=== PATIENT | female | born 1935 | race Caucasian/White ===

== ENCOUNTER 2017-11-08 11:20 | Inpatient (IN) | payer MEDICARE ==
[~2017-11-08 11:20] MED LIST: EPINEPHrine 0.1 MG/ML SYG; NA BICARBONATE 8.4% 50 ML SYG
[2017-11-08] MEDS: SOD CHLORIDE 0.9% 1,000 ML IV (11:37)
[2017-11-08] MEDS: ALBUTEROL 0.5% (NEB) 2.5 MG/0.5 ML AMP INH (11:57)
[2017-11-08 12:32] LABS: ADD MAN DIFF? NO
[2017-11-08 12:37] LABS: WHITE BLOOD COUNT 9.4 10^3/ul (4.8-10.8)
[2017-11-08 12:37] LABS: ABNORMAL IP MESSAGE 1; BASOPHILS % 0.2 % (0.0-2.0); EOSINOPHILS % 0.2 % (0.0-7.0); HEMATOCRIT 29.4 % (37.0-47.0); HEMOGLOBIN 8.5 g/dl (12.0-16.0); LYMPHOCYTES # 1.5 10^3/ul (0.8-2.9); LYMPHOCYTES % 15.7 % (15.0-51.0); MEAN CORPUSCULAR HEMOGLOBIN 30.4 pg (29.0-33.0); MEAN CORPUSCULAR HGB CONC 28.9 g/dl (32.0-37.0); MEAN PLATELET VOLUME 11.6 fl (7.4-10.4); MONOCYTE # 0.8 10^3/ul (0.3-0.9); NEUTROPHIL # 6.7 10^3/ul (1.6-7.5); NEUTROPHILS % 71.7 % (39.0-77.0); PLATELET COUNT 270 10^3/UL (140-415); RED CELL DISTRIBUTION WIDTH 17.2 % (11.5-14.5)
[2017-11-08 12:41] LABS: POSITIVE DIFF @See below
[2017-11-08 12:56] LABS: INR 1.01; PROTIME 13.4 Sec (11.9-14.9)
[2017-11-08 13:00] LABS: ALANINE AMINOTRANSFERASE 86 IU/L (13-69); ALBUMIN 2.9 g/dl (3.3-4.9); ALBUMIN/GLOBULIN RATIO 0.69; ALKALINE PHOSPHATASE 78 IU/L (42-121); ANION GAP 22 (8-16); ASPARTATE AMINO TRANSFERASE 122 IU/L (15-46); BLOOD UREA NITROGEN 69 mg/dl (7-20); CALCIUM 7.8 mg/dl (8.4-10.2); CARBON DIOXIDE 14 mmol/L (21-31); CHLORIDE 120 mmol/L (97-110); CREATININE 3.86 mg/dl (0.44-1.00); LIPASE 292 U/L (23-300); POTASSIUM 5.7 mmol/L (3.5-5.1); SODIUM 150 mmol/L (135-144); TOTAL PROTEIN 7.1 g/dl (6.1-8.1)
[2017-11-08 13:10] LABS: GLUCOSE 50 mg/dl (70-220)
[2017-11-08] MEDS ORDERED: DEXTROSE 50% 50 ML SYRINGE (13:12)
[2017-11-08 13:13] LABS: TROPONIN-I 0.449 ng/ml (0.00-0.12)
[2017-11-08] MEDS: DEXTROSE 50% 50 ML SYRINGE IV (13:55)
[2017-11-08] MEDS: ASPIRIN 81 MG TAB PO (13:59)
[2017-11-08 17:16] LABS: ADD UMIC YES; UR AMORPHOUS CRYSTAL MODERATE /HPF (NONE SEEN); UR ASCORBIC ACID NEGATIVE (NEGATIVE); UR BILIRUBIN (Dip) NEGATIVE (NEGATIVE); UR BLOOD (Dip) 1+ mg/dL (NEGATIVE); UR CLARITY CLOUDY (CLEAR); UR COLOR YELLOW (YELLOW); UR GLUCOSE (Dip) NEGATIVE (NEGATIVE); UR KETONES (Dip) TRACE mg/dL (NEGATIVE); UR LEUKOCYTE ESTERASE (Dip) TRACE Leu/ul (NEGATIVE); UR MUCUS FEW /HPF (NONE SEEN); UR NITRITE (Dip) NEGATIVE (NEGATIVE); UR RBC 2 /HPF (0-5); UR SPECIFIC GRAVITY (Dip) 1.016 (1.003-1.030); UR SQUAMOUS EPITHELIAL CELL FEW /HPF (FEW); UR TOTAL PROTEIN (Dip) 3+ mg/dl (NEGATIVE); UR UROBILINOGEN (Dip) NEGATIVE (NEGATIVE); UR WBC 1 /HPF (0-5)
[2017-11-08] MEDS: DEXTROSE 5% 1,000 ML IV (21:57)
[2017-11-08] MEDS: CEFTRIAXONE 1 GM/50 ML (PMX) 50 ML IVPB (21:57)
[2017-11-09] MEDS: LEVALBUTEROL (NEB) 0.63 MG/3 ML AMP HHN ×3 (00:42→15:33)
[2017-11-09] MEDS: ATORVASTATIN 20 MG TAB PO (02:00)
[2017-11-09] MEDS: HYDROCHLOROTHIAZIDE 25 MG TAB PO (02:00)
[2017-11-09 03:26] LABS: SODIUM,URINE RANDOM 17 mmol/L (30-90)
[2017-11-09 05:58] LABS: OSMOLALITY,URINE 344 mOsm/kg (250-1200)
[2017-11-09] MEDS: DEXTROSE 5% 1,000 ML IV (07:09)
[2017-11-09] MEDS: METOPROLOL (XL) 50 MG TAB PO (08:35)
[2017-11-09] MEDS: FENOFIBRATE 145 MG TAB PO (08:35)
[2017-11-09 09:59] LABS: ADD MAN DIFF? NO
[2017-11-09 10:14] LABS: ABNORMAL IP MESSAGE 1; BASOPHILS % 0.2 % (0.0-2.0); EOSINOPHILS % 0.2 % (0.0-7.0); HEMOGLOBIN 7.4 g/dl (12.0-16.0); LYMPHOCYTES # 0.8 10^3/ul (0.8-2.9); LYMPHOCYTES % 7.9 % (15.0-51.0); MEAN CORPUSCULAR HEMOGLOBIN 30.1 pg (29.0-33.0); MEAN CORPUSCULAR HGB CONC 28.5 g/dl (32.0-37.0); MEAN CORPUSCULAR VOLUME 105.7 fl (82.0-101.0); MEAN PLATELET VOLUME 11.9 fl (7.4-10.4); MONOCYTE # 0.9 10^3/ul (0.3-0.9); MONOCYTES % 8.9 % (0.0-11.0); NEUTROPHIL # 8.3 10^3/ul (1.6-7.5); NEUTROPHILS % 80.4 % (39.0-77.0); PLATELET COUNT 227 10^3/UL (140-415); RED BLOOD COUNT 2.46 10^6/ul (4.20-5.40); RED CELL DISTRIBUTION WIDTH 17.2 % (11.5-14.5)
[2017-11-09 10:14] LABS: WHITE BLOOD COUNT 10.3 10^3/ul (4.8-10.8)
[2017-11-09 10:21] LABS: POSITIVE DIFF @See below
[2017-11-09 10:47] LABS: CREATINE KINASE 212 IU/L (23-200)
[2017-11-09 10:54] LABS: CK INDEX 2.9; CK-MB 6.21 ng/ml (0.0-2.4)
[2017-11-09 10:55] LABS: TROPONIN-I 0.308 ng/ml (0.00-0.12)
[2017-11-09 11:02] LABS: ALANINE AMINOTRANSFERASE 76 IU/L (13-69); ALBUMIN 2.5 g/dl (3.3-4.9); ALBUMIN/GLOBULIN RATIO 0.69; ALKALINE PHOSPHATASE 65 IU/L (42-121); ANION GAP 18 (8-16); ASPARTATE AMINO TRANSFERASE 94 IU/L (15-46); BLOOD UREA NITROGEN 67 mg/dl (7-20); CALCIUM 7.4 mg/dl (8.4-10.2); CARBON DIOXIDE 15 mmol/L (21-31); CHLORIDE 120 mmol/L (97-110); CHOL/HDL RATIO 5.2 RATIO; CHOLESTEROL 130 mg/dl (100-200); CREATININE 3.86 mg/dl (0.44-1.00); GLUCOSE 132 mg/dl (70-220); HDL CHOLESTEROL 25 mg/dl (33-92); LDL CHOLESTEROL,CALCULATED 59 mg/dl; POTASSIUM 5.2 mmol/L (3.5-5.1); SODIUM 148 mmol/L (135-144); TOTAL PROTEIN 6.1 g/dl (6.1-8.1); TRIGLYCERIDES 231 mg/dl (0-149)
[2017-11-09 11:06] LABS: TROPONIN-I 0.317 ng/ml (0.00-0.12)
[2017-11-09 11:07] LABS: IRON 65 ug/dl (35-150)
[2017-11-09 11:16] LABS: % IRON SATURATION 32 % SAT (22-52); TOTAL IRON BINDING CAPACITY 204 ug/dl (241-421)
[2017-11-09 13:56] LABS: FERRITIN 91.4 ng/ml (11.1-264.0)
[2017-11-09] MEDS: SOD CHLORIDE 0.45% 1,000 ML IV (15:46)
[2017-11-09 16:00] LABS: ALANINE AMINOTRANSFERASE 72 IU/L (13-69); ALBUMIN 2.4 g/dl (3.3-4.9); ALBUMIN/GLOBULIN RATIO 0.66; ALKALINE PHOSPHATASE 65 IU/L (42-121); ANION GAP 18 (8-16); ASPARTATE AMINO TRANSFERASE 85 IU/L (15-46); BLOOD UREA NITROGEN 67 mg/dl (7-20); CALCIUM 7.4 mg/dl (8.4-10.2); CARBON DIOXIDE 15 mmol/L (21-31); CHLORIDE 118 mmol/L (97-110); GLUCOSE 123 mg/dl (70-220); POTASSIUM 5.1 mmol/L (3.5-5.1); SODIUM 146 mmol/L (135-144)
[2017-11-09] MEDS: EPOETIN 3000 UNITS/1 ML INJ (ESRD) SC (16:46)
[2017-11-09] MEDS: ASPIRIN 325 MG TAB PO (18:00)
[2017-11-09 20:54] LABS: AADO2 Arterial 60.7 mmHg (7.0-24.0); Allen Test ACCEPTAB; Arterial Base Excess -13.9 mmol/L (-3.0-3); Arterial Blood Gas Oxygen Sat 95.8 mmHG (95.0-100.0); Arterial COHb 0.3 % (0.0-3.0); Arterial Fraction of Oxyhgb 95.3 % (93.0-99.0); Arterial HCO3 15.5 mmol/L (22.0-26.0); Arterial MetHb 0.2 % (0.0-1.5); Arterial Total Hemglobin 12.4 g/dl (12.0-18.0); Arterial pCO2 50.2 mmhg (35-45); MODE NASAL CANNULA; Site Left Radial
[2017-11-09] MEDS: METHYLDOPA 250 MG TAB PO (21:00)
[2017-11-09] MEDS: NA BICARBONATE 8.4% 50 ML SYG IV (21:26)
[2017-11-09] MEDS: CALCIUM GLUCONATE 10% 1 GM in DEXTROSE 5% 100 ML IVPB (22:18)
[2017-11-09] MEDS: FUROSEMIDE 40 MG INJ IV (22:35)
[2017-11-09 22:54] LABS: FOLATE 9.8 ng/ml (2.8-20.0)
[2017-11-10] MEDS: CEFTRIAXONE 1 GM/50 ML (PMX) 50 ML IVPB ×2 (00:39→21:04)
[2017-11-10] MEDS: LEVALBUTEROL (NEB) 0.63 MG/3 ML AMP HHN ×4 (00:53→23:52)
[2017-11-10 01:35] LABS: AADO2 Arterial 169.8 mmHg (7.0-24.0); Allen Test ACCEPTAB; Arterial Base Excess -14.1 mmol/L (-3.0-3); Arterial COHb 0.3 % (0.0-3.0); Arterial Fraction of Oxyhgb 96.4 % (93.0-99.0); Arterial HCO3 15.9 mmol/L (22.0-26.0); Arterial MetHb 0.3 % (0.0-1.5); Arterial Total Hemglobin 9.2 g/dl (12.0-18.0); Arterial pCO2 59.2 mmhg (35-45); MODE MASK - SIMPLE; Site LB
[2017-11-10] MEDS: SOD CHLORIDE 0.45% 1,000 ML IV (02:40)
[2017-11-10] MEDS: NA BICARBONATE 8.4% 50 ML SYG IV ×4 (02:40→12:36)
[2017-11-10 05:22] LABS: AADO2 Arterial 161.5 mmHg (7.0-24.0); Allen Test ACCEPTAB; Arterial Base Excess -7.3 mmol/L (-3.0-3); Arterial Blood Gas Oxygen Sat 99.3 mmHG (95.0-100.0); Arterial COHb 0.1 % (0.0-3.0); Arterial Fraction of Oxyhgb 98.8 % (93.0-99.0); Arterial MetHb 0.4 % (0.0-1.5); Arterial Total Hemglobin 7.6 g/dl (12.0-18.0); Blood Gas IEPAP 15/5; Blood Gas PS 10; MODE MASK - BIPAP; Site Left Radial
[2017-11-10 05:58] LABS: ANION GAP 14 (8-16); BLOOD UREA NITROGEN 72 mg/dl (7-20); CALCIUM 7.3 mg/dl (8.4-10.2); CARBON DIOXIDE 20 mmol/L (21-31); CHLORIDE 118 mmol/L (97-110); CREATININE 4.18 mg/dl (0.44-1.00); GLUCOSE 101 mg/dl (70-220); POTASSIUM 4.4 mmol/L (3.5-5.1); SODIUM 148 mmol/L (135-144)
[2017-11-10 06:03] LABS: CHOL/HDL RATIO 5.2 RATIO; HDL CHOLESTEROL 23 mg/dl (33-92); LDL CHOLESTEROL,CALCULATED 59 mg/dl; TRIGLYCERIDES 197 mg/dl (0-149)
[2017-11-10 06:03] LABS: CHOLESTEROL 121 mg/dl (100-200)
[2017-11-10 07:28] LABS: ABNORMAL IP MESSAGE 1; HEMATOCRIT 22.1 % (37.0-47.0); MEAN CORPUSCULAR HEMOGLOBIN 29.7 pg (29.0-33.0); MEAN CORPUSCULAR HGB CONC 28.5 g/dl (32.0-37.0); MEAN CORPUSCULAR VOLUME 104.2 fl (82.0-101.0); PLATELET COUNT 172 10^3/UL (140-415); RED BLOOD COUNT 2.12 10^6/ul (4.20-5.40); RED CELL DISTRIBUTION WIDTH 17.3 % (11.5-14.5)
[2017-11-10 07:28] LABS: WHITE BLOOD COUNT 11.2 10^3/ul (4.8-10.8)
[2017-11-10 07:29] LABS: POSITIVE DIFF @See below
[2017-11-10 07:31] LABS: ADD MAN DIFF? YES; HEMOGLOBIN 6.3 g/dl (12.0-16.0)
[2017-11-10] MEDS: METOPROLOL (XL) 50 MG TAB PO (08:23)
[2017-11-10] MEDS: METHYLDOPA 250 MG TAB PO (08:25)
[2017-11-10 08:38] LABS: AADO2 Arterial 102.3 mmHg (7.0-24.0); Allen Test ACCEPTAB; Arterial Base Excess -7.3 mmol/L (-3.0-3); Arterial Blood Gas Oxygen Sat 98.3 mmHG (95.0-100.0); Arterial COHb 0.9 % (0.0-3.0); Arterial MetHb 0.4 % (0.0-1.5); Arterial Total Hemglobin 5.5 g/dl (12.0-18.0); Arterial pCO2 52.3 mmhg (35-45); Blood Gas IEPAP 15/5; MODE MASK - BIPAP; Site Right Radial
[2017-11-10] MEDS: FENOFIBRATE 145 MG TAB PO (08:43)
[2017-11-10] MEDS: ASPIRIN 325 MG TAB PO (08:43)
[2017-11-10] MEDS: SOD CHLORIDE 0.9% 250 ML IV* (08:56)
[2017-11-10] MEDS: HYDROCHLOROTHIAZIDE 25 MG TAB PO (09:08)
[2017-11-10 09:15] LABS: BAND NEUTROPHILS #M 0.6 10^3/ul (0.0-0.6); BAND NEUTROPHILS % (M) 6 % (0-4); BASOPHIL #M 0.1 10^3/ul (0.0-0.0); BASOPHILS % (M) 1 % (0-2); GIANT THROMBO% (M) 2 % (0-0); POIKILOCYTOSIS 1+ (0-0); SMUDGE%M 1 % (0-0)
[2017-11-10 10:36] LABS: ANISOCYTOSIS 1+ (0-0); HYPOCHROMASIA 1+ (0-0); LYMPHOCYTES #M 0.1 10^3/ul (0.8-2.9); LYMPHOCYTES % (M) 1 % (15-51); MONOCYTE #M 0.7 10^3/ul (0.3-0.9); MONOCYTES % (M) 7 % (0-11); PLATELET ESTIMATE NORMAL; POLYCHROMASIA 2+ (0-0); SEG NEUT #M 9.7 10^3/ul (1.7-7.5); SEGMENTED NEUTROPHILS (M) % 86 % (39-77)
[2017-11-10 11:42] LABS: AADO2 Arterial 73.9 mmHg (7.0-24.0); Allen Test ACCEPTAB; Arterial Base Excess -7.8 mmol/L (-3.0-3); Arterial COHb 0 % (0.0-3.0); Arterial Fraction of Oxyhgb 97.7 % (93.0-99.0); Arterial HCO3 19.3 mmol/L (22.0-26.0); Arterial MetHb 0.3 % (0.0-1.5); Arterial pCO2 48.6 mmhg (35-45); Blood Gas IEPAP 18/8; MODE MASK - BIPAP
[2017-11-10] MEDS: ALBUMIN HUMAN 5% 250 ML IV (12:36)
[2017-11-10] MEDS: PANTOPRAZOLE (EC) 40 MG TAB PO (12:36)
[2017-11-10] MEDS: ATORVASTATIN 20 MG TAB PO (21:04)
[2017-11-10 21:10] LABS: PLATELET COUNT 178 10^3/UL (140-415)
[2017-11-10 21:29] LABS: INR 1.12; PROTIME 14.6 Sec (11.9-14.9); PT RATIO 1.1
[2017-11-10 21:30] LABS: PARTIAL THROMBOPLASTIN TIME 37.8 Sec (25.0-35.0)
[2017-11-10 21:35] LABS: THROMBIN TIME 18.4 SEC (13.8-19.1)
[2017-11-10 21:38] LABS: D-DIMER 2990.89 ng/ml (<460)
[2017-11-10 22:05] LABS: FIBRIN SPLIT PRODUCT >10 and <40 ug/ml (<10)
[2017-11-10 22:19] LABS: AHG CROSSMATCH 1 2
[2017-11-11 05:36] LABS: ADD MAN DIFF? NO
[2017-11-11 05:55] LABS: WHITE BLOOD COUNT 10.1 10^3/ul (4.8-10.8)
[2017-11-11 05:55] LABS: BASOPHILS % 0.3 % (0.0-2.0); EOSINOPHILS % 0.2 % (0.0-7.0); HEMATOCRIT 32.3 % (37.0-47.0); LYMPHOCYTES # 0.6 10^3/ul (0.8-2.9); LYMPHOCYTES % 6.2 % (15.0-51.0); MEAN PLATELET VOLUME 12.3 fl (7.4-10.4); MONOCYTE # 0.5 10^3/ul (0.3-0.9); MONOCYTES % 5.2 % (0.0-11.0); NEUTROPHIL # 8.7 10^3/ul (1.6-7.5); NEUTROPHILS % 86.4 % (39.0-77.0); NUCLEATED RED BLOOD CELLS% 0.2 /100WBC (0.0-0.0); PLATELET COUNT 137 10^3/UL (140-415); RED BLOOD COUNT 3.33 10^6/ul (4.20-5.40); RED CELL DISTRIBUTION WIDTH 17.2 % (11.5-14.5)
[2017-11-11 06:24] LABS: ANION GAP 14 (8-16); BLOOD UREA NITROGEN 57 mg/dl (7-20); CALCIUM 7.2 mg/dl (8.4-10.2); CARBON DIOXIDE 23 mmol/L (21-31); CHLORIDE 111 mmol/L (97-110); CREATININE 3.33 mg/dl (0.44-1.00); GLUCOSE 82 mg/dl (70-220); MAGNESIUM 1.4 mg/dl (1.7-2.5); PHOSPHORUS 5.6 mg/dl (2.5-4.9); SODIUM 144 mmol/L (135-144)
[2017-11-11] MEDS: PANTOPRAZOLE (EC) 40 MG TAB PO (06:27)
[2017-11-11 06:28] LABS: CK-MB 5.22 ng/ml (0.0-2.4)
[2017-11-11 06:45] LABS: HEPATITIS B SURFACE ANTIGEN NEGATIVE (NEGATIVE)
[2017-11-11 06:46] LABS: CREATINE KINASE 266 IU/L (23-200)
[2017-11-11 07:12] LABS: TROPONIN-I 0.197 ng/ml (0.00-0.12)
[2017-11-11 08:18] LABS: AADO2 Arterial 125.5 mmHg (7.0-24.0); Arterial Base Excess -0.2 mmol/L (-3.0-3); Arterial Blood Gas Oxygen Sat 99.1 mmHG (95.0-100.0); Arterial COHb 0.4 % (0.0-3.0); Arterial Fraction of Oxyhgb 98.4 % (93.0-99.0); Arterial HCO3 26.3 mmol/L (22.0-26.0); Arterial MetHb 0.3 % (0.0-1.5); Arterial Total Hemglobin 14.4 g/dl (12.0-18.0); Arterial pCO2 50.5 mmhg (35-45); MODE MASK - SIMPLE; Site Right Brachial
[2017-11-11 08:57] LABS: HEPATITIS B SURFACE ANTIBODY POSITIVE (NEGATIVE)
[2017-11-11] MEDS ORDERED: METOPROLOL (XL) 25 MG TAB PO (09:00)
[2017-11-11] MEDS: LEVALBUTEROL (NEB) 0.63 MG/3 ML AMP HHN ×2 (09:23→16:43)
[2017-11-11] MEDS: INFLUENZA VIRUS VACCINE 0.5 ML (DISPENSING) IM* (09:38)
[2017-11-11] MEDS: NIFEdipine (XL) 30 MG TAB PO (13:30)
[2017-11-11] MEDS: METOPROLOL 50 MG TAB NGT (13:47)
[2017-11-11] MEDS: ACETAMINOPHEN 500 MG TAB PO (13:48)
[2017-11-11] MEDS: ENALAPRIL 10 MG TAB NGT (16:25)
[2017-11-11] MEDS: EPOETIN 3000 UNITS/1 ML INJ (ESRD) SC (18:13)
[2017-11-11] MEDS: AMLODIPINE 5 MG TAB NGT (19:30)
[2017-11-11] MEDS: ATORVASTATIN 20 MG TAB PO (21:20)
[2017-11-11] MEDS: CEFTRIAXONE 1 GM/50 ML (PMX) 50 ML IVPB (21:21)
[2017-11-12] MEDS: LEVALBUTEROL (NEB) 0.63 MG/3 ML AMP HHN ×4 (01:06→23:53)
[2017-11-12 03:14] LABS: ADD MAN DIFF? NO
[2017-11-12 03:16] LABS: BASOPHILS % 0.2 % (0.0-2.0); HEMATOCRIT 33.5 % (37.0-47.0); LYMPHOCYTES # 0.8 10^3/ul (0.8-2.9); LYMPHOCYTES % 4.2 % (15.0-51.0); MEAN CORPUSCULAR HEMOGLOBIN 30.5 pg (29.0-33.0); MEAN CORPUSCULAR HGB CONC 32.8 g/dl (32.0-37.0); MEAN CORPUSCULAR VOLUME 92.8 fl (82.0-101.0); MEAN PLATELET VOLUME 12.2 fl (7.4-10.4); MONOCYTE # 0.9 10^3/ul (0.3-0.9); MONOCYTES % 5.1 % (0.0-11.0); NEUTROPHIL # 16.7 10^3/ul (1.6-7.5); NEUTROPHILS % 89.5 % (39.0-77.0); NUCLEATED RED BLOOD CELLS% 0.1 /100WBC (0.0-0.0); PLATELET COUNT 150 10^3/UL (140-415); RED BLOOD COUNT 3.61 10^6/ul (4.20-5.40); RED CELL DISTRIBUTION WIDTH 17.4 % (11.5-14.5)
[2017-11-12 03:16] LABS: WHITE BLOOD COUNT 18.6 10^3/ul (4.8-10.8)
[2017-11-12 03:36] LABS: ANION GAP 15 (8-16); BLOOD UREA NITROGEN 39 mg/dl (7-20); CALCIUM 7.6 mg/dl (8.4-10.2); CARBON DIOXIDE 23 mmol/L (21-31); CHLORIDE 102 mmol/L (97-110); CREATININE 2.62 mg/dl (0.44-1.00); GLUCOSE 97 mg/dl (70-220); PHOSPHORUS 4.7 mg/dl (2.5-4.9); POTASSIUM 3.9 mmol/L (3.5-5.1); SODIUM 136 mmol/L (135-144)
[2017-11-12 03:36] LABS: MAGNESIUM 1.4 mg/dl (1.7-2.5)
[2017-11-12] MEDS: PANTOPRAZOLE (EC) 40 MG TAB PO (06:04)
[2017-11-12] MEDS ORDERED: OXYCODONE/ACETAMINOPHEN (5/325) TAB (11:05)
[2017-11-12] MEDS ORDERED: MAGNESIUM SULFATE 2 GM/50 ML 50 ML (11:07)
[2017-11-12] MEDS: ENALAPRIL 10 MG TAB NGT (11:11)
[2017-11-12] MEDS: AMLODIPINE 5 MG TAB NGT (11:12)
[2017-11-12] MEDS: MAGNESIUM SULFATE 2 GM/50 ML 50 ML IVPB (11:58)
[2017-11-12] MEDS: OXYCODONE/ACETAMINOPHEN (5/325) TAB PO ×2 (11:58→19:02)
[2017-11-12 11:59] LABS: AADO2 Arterial 534.8 mmHg (7.0-24.0); Arterial Blood Gas Oxygen Sat 94.2 mmHG (95.0-100.0); Arterial COHb 0.3 % (0.0-3.0); Arterial Fraction of Oxyhgb 93.8 % (93.0-99.0); Arterial HCO3 20.4 mmol/L (22.0-26.0); Arterial MetHb 0.1 % (0.0-1.5); Arterial Total Hemglobin 12.2 g/dl (12.0-18.0); Arterial pCO2 35.2 mmhg (35-45); Blood Gas IEPAP 18/8; MODE MASK - BIPAP; Site Right Brachial
[2017-11-12] MEDS: METOPROLOL 50 MG TAB NGT (13:19)
[2017-11-12] MEDS: ATORVASTATIN 20 MG TAB PO (21:00)
[2017-11-12] MEDS: CEFTRIAXONE 1 GM/50 ML (PMX) 50 ML IVPB (21:00)
[2017-11-13] MEDS ORDERED: LORAZEPAM 2 MG INJ IV (00:30)
[2017-11-13] MEDS: SOD CHLORIDE 0.9% 500 ML IV (01:17)
[2017-11-13 04:25] LABS: AADO2 Arterial 571.5 mmHg (7.0-24.0); Allen Test ACCEPTAB; Arterial Base Excess -6.2 mmol/L (-3.0-3); Arterial Blood Gas Oxygen Sat 67.2 mmHG (95.0-100.0); Arterial COHb 0.3 % (0.0-3.0); Arterial Fraction of Oxyhgb 66.8 % (93.0-99.0); Arterial MetHb 0.3 % (0.0-1.5); Arterial Total Hemglobin 11.7 g/dl (12.0-18.0); Arterial pCO2 96.3 mmhg (35-45); Blood Gas IEPAP 18/8; MODE MASK - BIPAP; Site Left Radial
[2017-11-13] MEDS ORDERED: NA BICARBONATE 8.4% 50 ML SYG (04:39)
[2017-11-13] MEDS: NA BICARBONATE 8.4% 50 ML SYG IV ×2 (05:08)
[2017-11-13] MEDS: PANTOPRAZOLE (EC) 40 MG TAB PO (05:19)
[2017-11-13 05:25] LABS: AADO2 Arterial 598.4 mmHg (7.0-24.0); Allen Test ACCEPTAB; Arterial Base Excess 1.2 mmol/L (-3.0-3); Arterial Blood Gas Oxygen Sat 91.8 mmHG (95.0-100.0); Arterial COHb 0.3 % (0.0-3.0); Arterial Fraction of Oxyhgb 91.3 % (93.0-99.0); Arterial HCO3 27.6 mmol/L (22.0-26.0); Arterial MetHb 0.2 % (0.0-1.5); Arterial Total Hemglobin 10.4 g/dl (12.0-18.0); Arterial pCO2 52.4 mmhg (35-45); Blood Gas Low PEEP Setting 0 cmH2O; MODE VENT - AC; Site Right Radial
[2017-11-13] MEDS ORDERED: NORepinephrine 8MG/250 ML (PMX 250 ML (06:21)
[2017-11-13] MEDS: NORepinephrine 8MG/250 ML (PMX 250 ML IV ×2 (06:45→18:11)
[2017-11-13] MEDS: ENALAPRIL 10 MG TAB NGT (09:00)
[2017-11-13] MEDS: AMLODIPINE 5 MG TAB NGT (09:00)
[2017-11-13] MEDS ORDERED: VANCOMYCIN IV PER PHARMACY XX (12:00)
[2017-11-13] MEDS: VANCOMYCIN 1 GM 250 ML IVPB (14:55)
[2017-11-13] MEDS ORDERED: AMIKACIN IV PER PHARMACY XX (16:30)
[2017-11-13] MEDS: LEVALBUTEROL (HFA) 15 GM INHALER INH ×2 (17:09→23:19)
[2017-11-13] MEDS: AMIKACIN 400 MG in DEXTROSE 5% 100 ML IVPB (18:05)
[2017-11-13] MEDS: METOPROLOL 25 MG TAB NGT (21:00)
[2017-11-13] MEDS: ATORVASTATIN 20 MG TAB PO (22:15)
[2017-11-14 03:14] LABS: AADO2 Arterial 607.7 mmHg (7.0-24.0); Allen Test ACCEPTAB; Arterial Base Excess -4.7 mmol/L (-3.0-3); Arterial Blood Gas Oxygen Sat 91.8 mmHG (95.0-100.0); Arterial COHb 0.3 % (0.0-3.0); Arterial Fraction of Oxyhgb 91.3 % (93.0-99.0); Arterial HCO3 20.5 mmol/L (22.0-26.0); Arterial MetHb 0.2 % (0.0-1.5); Arterial Total Hemglobin 10.5 g/dl (12.0-18.0); Arterial pCO2 38.1 mmhg (35-45); MODE VENT - AC; Site Right Radial
[2017-11-14 03:43] LABS: ANION GAP 16 (8-16); BLOOD UREA NITROGEN 58 mg/dl (7-20); CALCIUM 7.3 mg/dl (8.4-10.2); CARBON DIOXIDE 23 mmol/L (21-31); CHLORIDE 102 mmol/L (97-110); POTASSIUM 3.9 mmol/L (3.5-5.1); SODIUM 137 mmol/L (135-144)
[2017-11-14] MEDS ORDERED: DEXTROSE 50% 50 ML SYRINGE (03:51)
[2017-11-14 04:19] LABS: WHITE BLOOD COUNT 6.7 10^3/ul (4.8-10.8)
[2017-11-14 04:19] LABS: ABNORMAL IP MESSAGE 1; GLUCOSE < 20 mg/dl (70-220); HEMATOCRIT 25.8 % (37.0-47.0); HEMOGLOBIN 8.6 g/dl (12.0-16.0); MEAN CORPUSCULAR HEMOGLOBIN 30.7 pg (29.0-33.0); MEAN CORPUSCULAR HGB CONC 33.3 g/dl (32.0-37.0); MEAN CORPUSCULAR VOLUME 92.1 fl (82.0-101.0); RED CELL DISTRIBUTION WIDTH 17.3 % (11.5-14.5)
[2017-11-14 04:23] LABS: PLATELET COUNT 43 10^3/UL (140-415)
[2017-11-14 04:24] LABS: ADD MAN DIFF? YES; POSITIVE DIFF @See below
[2017-11-14] MEDS: DEXTROSE 50% 50 ML SYRINGE IV ×4 (04:38→15:42)
[2017-11-14] MEDS: NORepinephrine 8MG/250 ML (PMX 250 ML IV ×2 (05:12→08:33)
[2017-11-14] MEDS: METHYLPREDNISOLONE 40 MG INJ IV (06:14)
[2017-11-14] MEDS: PANTOPRAZOLE (EC) 40 MG TAB PO (06:14)
[2017-11-14] MEDS: LEVALBUTEROL (HFA) 15 GM INHALER INH ×2 (08:22→16:13)
[2017-11-14 08:43] LABS: Allen Test ACCEPTAB; Arterial Base Excess -6.6 mmol/L (-3.0-3); Arterial Blood Gas Oxygen Sat 95.1 mmHG (95.0-100.0); Arterial COHb 0.3 % (0.0-3.0); Arterial Fraction of Oxyhgb 94.6 % (93.0-99.0); Arterial HCO3 19.3 mmol/L (22.0-26.0); Arterial MetHb 0.2 % (0.0-1.5); Arterial pCO2 39.7 mmhg (35-45); MODE VENT - AC; Site Right Radial
[2017-11-14] MEDS: AMLODIPINE 5 MG TAB NGT (09:00)
[2017-11-14] MEDS: METOPROLOL 25 MG TAB NGT (09:00)
[2017-11-14] MEDS: ENALAPRIL 10 MG TAB NGT (09:00)
[2017-11-14 13:49] LABS: ABNORMAL IP MESSAGE 1; HEMOGLOBIN 8.1 g/dl (12.0-16.0); MEAN CORPUSCULAR HEMOGLOBIN 30.7 pg (29.0-33.0); MEAN CORPUSCULAR VOLUME 102.3 fl (82.0-101.0); NUCLEATED RED BLOOD CELLS% 6.8 /100WBC (0.0-0.0); RED BLOOD COUNT 2.64 10^6/ul (4.20-5.40); RED CELL DISTRIBUTION WIDTH 18.4 % (11.5-14.5)
[2017-11-14 13:49] LABS: WHITE BLOOD COUNT 7.4 10^3/ul (4.8-10.8)
[2017-11-14 13:52] LABS: ADD MAN DIFF? YES; PLATELET COUNT 8 10^3/UL (140-415); POSITIVE DIFF @See below
[2017-11-14] MEDS ORDERED: NA BICARBONATE 8.4% 50 ML SYG ×2 (13:55)
[2017-11-14 13:57] LABS: AADO2 Arterial 581.6 mmHg (7.0-24.0); Allen Test ACCEPTAB; Arterial Base Excess -23.7 mmol/L (-3.0-3); Arterial Blood Gas Oxygen Sat 90.9 mmHG (95.0-100.0); Arterial COHb 0.3 % (0.0-3.0); Arterial Fraction of Oxyhgb 90.1 % (93.0-99.0); Arterial MetHb 0.6 % (0.0-1.5); Arterial Total Hemglobin 9.3 g/dl (12.0-18.0); Arterial pCO2 41.4 mmhg (35-45); MODE AMBU BAG; Site Right Radial
[2017-11-14 13:59] LABS: BAND NEUTROPHILS #M 2.4 10^3/ul (0.0-0.6); BAND NEUTROPHILS % (M) 37 % (0-4); LYMPHOCYTES #M 0.3 10^3/ul (0.8-2.9); LYMPHOCYTES % (M) 5 % (15-51); METAMYELOCYTES #M 0.3 10^3/ul (0.0-0.0); METAMYELOCYTES %M 5 % (0-0); MONOCYTES % (M) 15 % (0-11); MYELOCYTES #M 0.1 10^3/ul (0.0-0.0); MYELOCYTES % (M) 2 % (0-0); PROMYELOCYTES % (M) 2 % (0-0); SEG NEUT #M 2.4 10^3/ul (1.7-7.5); SEGMENTED NEUTROPHILS (M) % 34 % (39-77)
[2017-11-14 14:00] LABS: ANISOCYTOSIS 2+ (0-0); BURR CELLS 3+ (0-0); GIANT THROMBO% (M) 13 % (0-0); PLATELET ESTIMATE DECREASED; POIKILOCYTOSIS 2+ (0-0); PROMYELOCYTES #M 0.1 10^3/ul (0-0); SMUDGE%M 5 % (0-0)
[2017-11-14 14:03] LABS: ANION GAP 25 (8-16); BLOOD UREA NITROGEN 59 mg/dl (7-20); CALCIUM 7.6 mg/dl (8.4-10.2); CARBON DIOXIDE 14 mmol/L (21-31); CHLORIDE 99 mmol/L (97-110); GLUCOSE 372 mg/dl (70-220); POTASSIUM 5.8 mmol/L (3.5-5.1); SODIUM 132 mmol/L (135-144)
[2017-11-14] MEDS: NA BICARBONATE 8.4% 50 ML SYG IV ×2 (14:04)
[2017-11-14] MEDS: AMIODARONE 900 MG in DEXTROSE 5% 482 ML IV (14:06)
[2017-11-14 14:10] LABS: CREATININE 3.69 mg/dl (0.44-1.00)
[2017-11-14] MEDS ORDERED: CA CHLORIDE 10% 10 ML SYRINGE (14:28)
[2017-11-14 14:49] LABS: AADO2 Arterial 497.4 mmHg (7.0-24.0); Allen Test ACCEPTAB; Arterial Blood Gas Oxygen Sat 97.8 mmHG (95.0-100.0); Arterial COHb 0.8 % (0.0-3.0); Arterial Fraction of Oxyhgb 96.2 % (93.0-99.0); Arterial HCO3 18.9 mmol/L (22.0-26.0); Arterial MetHb 0.8 % (0.0-1.5); Arterial Total Hemglobin 7.3 g/dl (12.0-18.0); Arterial pCO2 69.7 mmhg (35-45); MODE VENT - AC; Site Right Radial
[2017-11-14] MEDS: ALBUTEROL 0.083% (NEB) 2.5 MG/3 ML AMP HHN (14:50)
[2017-11-14] MEDS ORDERED: PHENYLephrine 20MG IN 250 ML 250 ML (15:26)
[2017-11-14] MEDS: INSULIN REGULAR, HUMAN 100 UNIT/1 ML 3ML VIAL IV (15:39)
[2017-11-14] MEDS ORDERED: PHENYLephrine 20MG IN 250 ML 250 ML IV (16:00)
[2017-11-14] MEDS ORDERED: DOPamine-D5W 1.6 MG/ML 250 ML (16:21)
[2017-11-14 16:22] LABS: ANISOCYTOSIS 1+ (0-0); BAND NEUTROPHILS #M 1.1 10^3/ul (0.0-0.6); BAND NEUTROPHILS % (M) 16 % (0-4); BURR CELLS 1+ (0-0); ERYTHROBLAST% (NRBC) (M) 31 % (0-0); GIANT THROMBO% (M) 1 % (0-0); LYMPHOCYTES #M 1.7 10^3/ul (0.8-2.9); LYMPHOCYTES % (M) 24 % (15-51); METAMYELOCYTES #M 0.1 10^3/ul (0.0-0.0); METAMYELOCYTES %M 2 % (0-0); MONOCYTE #M 0.7 10^3/ul (0.3-0.9); MONOCYTES % (M) 10 % (0-11); PLATELET MORPHOLOGY COMMENT @See below; POIKILOCYTOSIS 2+ (0-0); POLYCHROMASIA 3+ (0-0); SEG NEUT #M 3.6 10^3/ul (1.7-7.5); SEGMENTED NEUTROPHILS (M) % 48 % (39-77); SMUDGE%M 15 % (0-0)
[2017-11-14] MEDS ORDERED: DOPamine-D5W 1.6 MG/ML 250 ML IV (17:00)
[2017-11-14] MEDS ORDERED: PHENYLephrine 40 MG in DEXTROSE 5% 496 ML IV (17:00)
[2017-11-14] MEDS: EPOETIN 10000 UNITS/1 ML INJ (ESRD) SC (17:00)
[2017-11-14] MEDS ORDERED: VASOPRESSIN 60 UNIT in DEXTROSE 5% 57 ML IV (17:00)
[2017-11-14] MEDS ORDERED: AMIKACIN IVPB (17:30)
[2017-11-14] MEDS ORDERED: DEXTROSE 5% IVPB (17:30)
== END 2017-11-14 17:22 | disposition expired | DRG 208 ==
LOC: MS4 14:20 → ICU 11-10 02:15 → E/R 11:20 → MS4 11-09 21:24
PROC: 06HM33Z Insertion of Infusion Device into Right Femoral Vein, Percutaneous Approach (ICD-10-PCS; 2017-11-10)
PROC: 30233N1 Transfusion of Nonautologous Red Blood Cells into Peripheral Vein, Percutaneous Approach (ICD-10-PCS; 2017-11-10)
PROC: 5A09457 Assistance with Respiratory Ventilation, 24-96 Consecutive Hours, Continuous Positive Airway Pressure (ICD-10-PCS; 2017-11-10)
PROC: 5A1D70Z Performance of Urinary Filtration, Intermittent, Less than 6 Hours Per Day (ICD-10-PCS; 2017-11-11)
PROC: 5A1935Z Respiratory Ventilation, Less than 24 Consecutive Hours (ICD-10-PCS; principal; 2017-11-13)
PROC: 0BH17EZ Insertion of Endotracheal Airway into Trachea, Via Natural or Artificial Opening (ICD-10-PCS; 2017-11-13)
DX: J44.0 Chronic obstructive pulmonary disease with (acute) lower respiratory infection (principal); J96.02 Acute respiratory failure with hypercapnia; A41.51 Sepsis due to Escherichia coli [E. coli]; R65.21 Severe sepsis with septic shock; N17.9 Acute kidney failure, unspecified; G93.41 Metabolic encephalopathy; J18.9 Pneumonia, unspecified organism; N18.6 End stage renal disease; K92.2 Gastrointestinal hemorrhage, unspecified; E87.0 Hyperosmolality and hypernatremia; R64 Cachexia; N39.0 Urinary tract infection, site not specified; J98.11 Atelectasis; E87.2 Acidosis; I46.9 Cardiac arrest, cause unspecified; D69.6 Thrombocytopenia, unspecified; I48.91 Unspecified atrial fibrillation; F03.90 Unspecified dementia, unspecified severity, without behavioral disturbance, psychotic disturbance, mood disturbance, and anxiety; I12.9 Hypertensive chronic kidney disease with stage 1 through stage 4 chronic kidney disease, or unspecified chronic kidney disease; N18.9 Chronic kidney disease, unspecified; E86.0 Dehydration; E16.2 Hypoglycemia, unspecified; D64.9 Anemia, unspecified; E87.5 Hyperkalemia; G20 Parkinson's disease; Z95.1 Presence of aortocoronary bypass graft; Z68.20 Body mass index [BMI] 20.0-20.9, adult; J00 Acute nasopharyngitis [common cold]
CPT/HCPCS: 31500; 36430; 36600; 71045; 76775; 80048; 80053; 80061; 81001; 82550; 82553; 82607; 82728; 82746; 82803; 82962; 83540; 83690; 83735; 83935; 84100; 84300; 84443; 84484; 85025; 85049; 85362; 85378; 85384; 85610; 85670; 85730; 86644; 86706; 86850; 86870; 86900; 86901; 86920; 87040; 87070; 87081; 87086; 87340; 87400; 90686; 90935; 92610; 92950; 93005; 93306; 94002; 94003; 94640; 94644; 94645; 94660; 94664; 94770; 96374; 96375; 99291-25